=== PATIENT | female | born 1950 | race Caucasian/White ===

== ENCOUNTER 2016-07-26 09:12 | Emergency (ER) | payer MEDICARE ==
[~2016-07-26] VITALS: Ht 175.3 cm; Wt 75.7 kg
[2016-07-26] MEDS ORDERED: TDAP [DIPH/PERTUSSIS/TET] 0.5 ML VIAL IM ONE ×2 (10:18→10:30)
[2016-07-26 10:28] VITALS: BP 125/68
== END 2016-07-26 10:29 | disposition home or self-care (01) ==
LOC: ER 09:13
DX: S01.511A Laceration without foreign body of lip, initial encounter (principal); X58.XXXA Exposure to other specified factors, initial encounter; Y92.89 Other specified places as the place of occurrence of the external cause; Y93.89 Activity, other specified; Y99.8 Other external cause status
CPT/HCPCS: 73140; 90471; 90715; 99284; A4606; A6402; Z7610